=== PATIENT | female | born 1970 | race Two or more races ===

== ENCOUNTER 2022-10-25 06:39 | Outpatient (CLI) | payer OTHER | END 2022-10-25 06:40 | disposition home or self-care (01) | LOC: LAB 06:39 | PROVIDERS: ATTEND Internal Medicine Gastroenterology | DX: R10.13 Epigastric pain (principal); R07.9 Chest pain, unspecified; E07.9 Disorder of thyroid, unspecified; D50.0 Iron deficiency anemia secondary to blood loss (chronic); I50.9 Heart failure, unspecified ==

== ENCOUNTER 2022-12-27 08:33 | Outpatient (CLI) | payer OTHER | END 2022-12-27 08:49 | disposition home or self-care (01) | LOC: TOM 08:33 | PROVIDERS: ATTEND Internal Medicine Gastroenterology | DX: K59.02 Outlet dysfunction constipation (principal) ==